=== PATIENT | male | born 1980 | race Caucasian/White ===

== ENCOUNTER 2022-12-01 16:04 | Emergency (ER) | payer OTHER, SELFPAY ==
[2022-12-01 16:11] VITALS: BP 163/101; PULSE 96; RESP 14; TEMP 36.6; O2SAT 98; BMI 26.9
--- NOTE | 2022-12-01 16:13 | ED.EYEPROB ---
HPI - Eye Problem General Chief complaint: Eye Problems Stated complaint: R eye sty Time Seen by Provider: 12/01/22 16:13 Source: patient Mode of arrival: ambulatory Limitations: no limitations History of Present Illness HPI Narrative: 42-year-old male presents to the emergency department for evaluation of bump to right lower eyelid that started 3-4 days ago progressively worsening. Patient tells me it started as a small bump at the bump is red, hot, swollen. Denies pain with eye movements. Denies fevers, chills, headache, vision changes, dizziness, weakness, foreign body sensation in eye. Related Data Previous Rx's Medication Instructions Recorded erythromycin 5 mg/gram (0.5 %) eye 1 appl ophthalmic (eye) DAILY #3.5 12/01/22 ointment grams Allergies Allergy/AdvReac Type Severity Reaction Status Date / Time No Known Allergies Allergy Verified 12/01/22 16:11 [No Known Allergies*] Review of Systems Review of Systems: Constitutional : No Weight loss, No Fever, No Chills, No Fatigue, No Malaise ENT/Mouth : No sore throat, No Rhinorrhea Eyes: No Eye Pain, No Swelling, No Redness Cardiovascular : No Chest Pain, No SOB, No Dyspnea on Exertion, No Orthopnea, No Edema, No Palpitations Respiratory : No Cough, No Sputum, No Wheezing Gastrointestinal : No Nausea, No Vomiting, No Diarrhea, No Constipation, No abdominal Pain, No Hematochezia, No Melena Genitourinary : No Dysuria, No Urinary Frequency, No Hematuria, Musculoskeletal : No joint pain, No Myalgias, No Joint Swelling Skin : No Skin Lesions, + rash to eye Neuro : No Weakness, No Numbness, No Dizziness, No Headache Psych : No Anxiety/Panic, No Depression All other systems reviewed and are negative Yes all other systems are reviewed and are negative [facility] Past Medical History Attestation statement: The following information was validated with the patient. Source: old records reviewed and nursing notes reviewed Physical Exam Vital Signs: Vital Signs: Last Vital Signs Temp 98 F 12/01/22 16:11 Pulse 96 12/01/22 16:11 Resp 14 12/01/22 16:11 BP 163/101 H 12/01/22 16:11 Pulse Ox 98 12/01/22 16:11 O2 Del Method 03/21/23 16:11 BMI result Body Mass Index 26.9 Patient noted to be slightly hypertensive could be secondary to pain. Appearance: Alert.? Oriented X3.? No acute distress.? Head: Normocephalic, atraumatic, no step-offs or deformities Eyes: Pupils equal, round and reactive to light.? + Hordeolum noted to the right lower eyelid. No pain with eye movements. Extraocular movements intact and pain free. ENT: Pharynx normal.? Neck: Normal inspection.? Neck supple.? CVS: Normal heart rate and rhythm.? Pulses normal.? Respiratory: No respiratory distress.? Breath sounds normal.? Abdomen: Soft and nontender.? Skin: Skin warm and dry.? Normal skin color.? Normal skin turgor.? Extremities: No lower extremity edema.? No calf ttp. 5/5 strength to bilateral upper and lower extremities Neuro: Oriented X 3.? No motor deficit.? No sensory deficit. CN 2-12 intact . Ambulating with steady gait normal coordination. Course Reevaluation(s) Reevaluation #1: Patient's blood pressure was recheck still high, likely chronic in nature, no headache, vision changes, nausea, vomiting, dizziness NIH stroke scale 0. Ambulating with steady gait. No focal neuro deficits. Will be discharged with erythromycin advised to apply warm compresses to area. Advised to follow-up with PCP. Give him options of PCPs in the area. Educated patient on diagnosis and treatment plan, answered all question, patient verbalizes understanding. At this time patient will be discharged home, advised to return with new or worsening symptoms. Educated on worrisome signs and symptoms and when to return. At this time I feel comfortable discharge home. Time: 16:17 Medical Decision Making Medical Decision Making [facility] Narrative: [id number] 42-year-old male presents with pain, swelling to right lower eyelid, started as a small bump slowly growing over the past 3-4 days. Physical exam with hordeolum to R lower lid. No FB. Extraocular movements intact and pain-free. Noted to be hypertensive however not on blood pressure medicine. He will follow up with his PCP, asymptomatic hypertension History and physical exam consistent with hordeolum, no signs of acute closed angle glaucoma, macular degeneration, foreign body, corneal abrasion, herpetic lesion in eye. Denies changes in vision. Asymptomatic hypertension likely chronic. No signs of stroke. Plan at this time erythromycin ointment. Warm compresses to eye. Will be discharged from triage. Differential Diagnosis Differential Diagnoses: The differential diagnosis associated with the presentation includes History and physical exam consistent with hordeolum, no signs of acute closed angle glaucoma, macular degeneration, foreign body, corneal abrasion, herpetic lesion in eye. Denies changes in vision. Asymptomatic hypertension likely chronic. No signs of stroke. Admission/Observation Consideration of admission/observation: Escalation of care including admission/observation considered Not indicate Core Measures AMI core measures followed: Yes Measure exclusions: not indicated Critical Care Time Critical Care Time Critical Care Time: No Discharge Plan Discharge Clinical Impression: Hordeolum, Hypertension Patient Disposition: Home, Self-Care Instructions: Stye (ED), Hypertension (ED) Additional Instructions: Take your medications as prescribed. If you were prescribed antibiotics today, it is important that you take your medication to their entirety, do not skip any doses, do not finish them early. Follow-up with your primary care provider this week. Follow-up with eye doctor, information below. Return to the emergency department with new or worsening symptoms. Such as fevers, chills, chest pain, shortness of breath, nausea, vomiting, dizziness, headache, vision changes, lethargy, painful vision, double vision or changes in vision In case of emergency call 911 Please check your blood pressure Wednesday, Wednesday, Wednesday, rated uninsured to primary care provider. These exercise daily if possible, decrease salt intake. Drink plenty of fluids. Stepped 1 in getting a better blood pressure is improving overall health, lifestyle modifications. Use erythromycin ointment as indicated. Apply warm compresses to affected eye 3 to 4 times a day for 20 minutes. Prescriptions: New erythromycin 5 mg/gram (0.5 %) ointment 1 appl ophthalmic (eye) DAILY Qty: 3.5 0RF Referrals: Baron Angel [Physician] - 2 days
--- NOTE | 2022-12-01 16:16 | PC.NURSE ---
2nd bp 171/103, teaching done re dangers of htn, pt states he is aware of the htn and has chosen not to do anything about it,
== END 2022-12-01 17:18 | disposition home or self-care (01) ==
PROVIDERS: Emergency Provider Emergency Medicine
DX: H00.012 Hordeolum externum right lower eyelid (principal); I10 Essential (primary) hypertension; Z79.899 Other long term (current) drug therapy
CPT/HCPCS: 99282; 99283